=== PATIENT | female | born 1960 | race Caucasian/White ===

== ENCOUNTER 2022-09-27 15:13 | Outpatient (CLI) | payer MEDICARE, SELFPAY | END 2022-09-27 15:14 | disposition home or self-care (01) | PROVIDERS: PCP Family Medicine; Visit Provider Family Medicine | DX: Z00.00 Encounter for general adult medical examination without abnormal findings (principal); I10 Essential (primary) hypertension; E78.00 Pure hypercholesterolemia, unspecified | CPT/HCPCS: 80053; 80061; 84443 ==

== ENCOUNTER 2022-10-05 08:29 | Outpatient (CLI) | payer MEDICARE, SELFPAY ==
--- NOTE | 2022-10-05 09:00 | CRLHL7_ITS ---
For Patients: As a result of the Century Cures Act, medical imaging exams and procedure reports are released immediately into your electronic medical record. You may view this report before your referring provider. If you have questions, please contact your health care provider. MYOCARDIAL PERFUSION SCAN ??? [facility] CLINICAL HISTORY: 62-year-old female. Dyspnea on exertion. COPD. Prior smoker. Height 5 feet, 7 inches, weight 191 pounds. TECHNIQUE: (Resting SPECT and stress gated SPECT with wall motion and ejection fraction) Stress: Pharmacologic - Regadenoson (0.4 mg)(IV) (Walking Protocol) Dose (Stress/Rest): 32.1 mCi/8.44 mCi Tc-99m Sestamibi (IV) Comparison: None FINDINGS: There is good uptake of activity by the left ventricle. No left ventricular enlargement is noted. End-diastolic volume 44 mL. End-systolic volume 14 mL. There is mild soft tissue attenuation. No other significant fixed or reversible defects are identified. The gated images demonstrate a normal left ventricular ejection fraction of 68 percent. No regional wall motion abnormalities are identified. IMPRESSION: 1. No evidence of significant myocardial ischemia or infarction. 2. Normal left ventricular ejection fraction of 68 percent. This study was jointly reviewed by radiology and cardiology. SHIRLEY TSEPHENS M.D. Diagnostic/Nuclear Medicine Radiologist [email or web address] RIK/aaron / BERNARD LAU M.D. [facility] be/Dictated by: Shirley Stephens MD @ 10/05/2022 2:05:00 PM (Electronically Signed)
[2022-10-05] MEDS: SODIUM CHLORIDE 0.9 % (FLUSH) 10 ML SYRINGE IVF (10:50)
[2022-10-05] MEDS: REGADENOSON 0.4 MG/5 ML SYRINGE IVP (10:50)
[2022-10-05 10:55] VITALS: BP 140/84; PULSE 104; RESP 20
--- NOTE | 2022-10-05 11:52 | W.PM.STED ---
Stress Test Note Date Date of test: 10/05/22 Providers Primary care provider: Andres Palmer Stress test physician: Miguel Arceo Stress Test Note Stress test ordered: Lexiscila Indication for test: Shortness of breath Stress test medicine: Lexiscan Results discussion: Patient is seen cardiac stress test medical history form is reviewed, patient understands the risks benefits and side effects with to proceed, pretest EKG shows normal sinus rhythm, blood pressure 141/84, rate is 83. Standard Lexiscan walking protocol is used over 5 minute. , there is no complications, maximum heart rate was 129, no significant ST wave changes suggestive ischemia, she had no dysrhythmias, and recovered normally. She has some mild worsening of her vertiginous symptoms. She recovered normally. Impression: Negative electrographic portion of Lexiscan, successfully administered Follow up suggested: Discharge home, she is back to baseline, follow-up with primary care ordering physician, based on a review of the nuclear medicine component, clinical correlation with this will be needed.
== END 2022-10-05 11:05 | disposition home or self-care (01) ==
LOC: STRESS 08:30
PROVIDERS: PCP Family Medicine; Visit Provider Family Medicine
DX: R06.09 Other forms of dyspnea (principal)
CPT/HCPCS: 78452; 93016; 93017; A9500; J2785

== ENCOUNTER 2022-10-13 11:38 | Outpatient (CLI) | payer MEDICARE, SELFPAY | END 2022-10-13 11:39 | disposition home or self-care (01) | PROVIDERS: PCP Family Medicine; Referring Provider Family Medicine; Visit Provider Family Medicine | DX: E87.5 Hyperkalemia (principal) | CPT/HCPCS: 84132 ==

== ENCOUNTER 2022-12-22 16:04 | Outpatient (CLI) | payer MEDICARE, SELFPAY ==
--- NOTE | 2022-12-22 16:00 | CRLHL7_ITS ---
For Patients: As a result of the Century Cures Act, medical imaging exams and procedure reports are released immediately into your electronic medical record. You may view this report before your referring provider. If you have questions, please contact your health care provider. Indication: ABDOMEN PELVIS PAIN PELVIC SWELLING MASS LT WAIST LEVEL H/O ENDOMETRIOSIS Technique: Postcontrast CT abdomen and pelvis. 95 cc Isovue 370 intravenous contrast. Please note that all CT scans at this facility use dose modulation, iterative reconstruction, and/or weight-based dosing when appropriate to reduce radiation dose to as low as reasonably achievable. Comparison: None Findings: Emphysematous changes with several subpleural blebs. No pleural effusion. No free intraperitoneal air. Calcified granulomas within the right lung. No intrahepatic mass. The gallbladder is absent. No biliary obstruction. Normal anchors. Calcified granulomas in the spleen. Is small hiatal hernia. 1.4 cm right adrenal adenoma. Left adrenal gland normal. Kidneys are normal. The wrist atherosclerotic changes are present in the aorta. Bladder normal. No pelvic mass. Sigmoid diverticulosis. No diverticulitis. No bowel obstruction. No free fluid or abscess. Postop changes lumbar fusion L2-L5. Degenerative changes of both hips. Impression: Sigmoid diverticulosis. No diverticulitis. No pelvic mass or adenopathy. Status post cholecystectomy. No biliary obstruction. Old granulomatous change. Please note that all CT scans at this facility use dose modulation, iterative reconstruction, and/or weight-based dosing when appropriate to reduce radiation dose to as low as reasonably achievable. Dictated by Arvind Davison MD @ 12/23/2022 1:07:24 PM (Electronically Signed)
[2022-12-22 16:41] LABS: Creatinine* 0.7 mg/dL (0.5-1.5); Estimated Glomerular Filt Rate 98 ml/min
== END 2022-12-22 16:05 | disposition home or self-care (01) ==
PROVIDERS: PCP Family Medicine; Visit Provider Family Medicine
DX: R10.9 Unspecified abdominal pain (principal); K57.30 Diverticulosis of large intestine without perforation or abscess without bleeding; R19.00 Intra-abdominal and pelvic swelling, mass and lump, unspecified site; Z87.891 Personal history of nicotine dependence
CPT/HCPCS: 36415; 74177; 82565; Q9967

== ENCOUNTER 2022-12-29 15:52 | Outpatient (CLI) | payer MEDICARE, SELFPAY ==
--- NOTE | 2022-12-29 16:00 | CRLHL7_ITS ---
For Patients: As a result of the Cures Act, medical imaging exams and procedure reports are released immediately into your electronic medical record. You may view this report before your referring provider. If you have questions, please contact your health care provider. INDICATION: Lung cancer screening. History of smoking. High risk patient with greater than 26 pack-year smoking history. TECHNIQUE: Low-dose lung cancer screening non-contrast CT chest. Dose reduction techniques were used. COMPARISON: Abdominal CT 12/22/2022. FINDINGS: NODULES: Calcified granuloma within the right middle lobe. Small calcified granulomas within right posterior lateral lung adjacent to the fissure. Small calcified granuloma in the left upper lobe. Nodular density in the left apex measuring 7.1 millimeters, 07/01. LUNGS AND PLEURA: Emphysema with extensive emphysematous change in both lung apices with associated pleural parenchymal scarring. MEDIASTINUM: Atherosclerotic changes in the aorta. Calcified right hilar lymph nodes. CORONARY ARTERY CALCIFICATION: Present. LIMITED UPPER ABDOMEN: Low-density right adrenal adenoma again noted. Calcification within the spleen. Gallbladder is absent. Atherosclerotic changes. Small hiatal hernia. MUSCULOSKELETAL: Discogenic spurring. No fracture. IMPRESSION: 1. 7.1 millimeter nodule in the left lung apex with underlying severe emphysematous change and extensive biapical pleural parenchymal scarring. 2. Small calcified granulomas elsewhere. LUNG-RADS CATEGORY: 3: Probably benign. RADIOLOGIST RECOMMENDATION: Low-dose CT chest in 6 months. Please note that all CT scans at this facility use dose modulation, iterative reconstruction, and/or weight-based dosing when appropriate to reduce radiation dose to as low as reasonably achievable. Dictated by Arvind Davison MD @ 12/30/2022 8:38:22 AM (Electronically Signed)
== END 2022-12-29 15:53 | disposition home or self-care (01) ==
LOC: CT 15:53
PROVIDERS: PCP Family Medicine; Visit Provider Family Medicine
DX: Z12.2 Encounter for screening for malignant neoplasm of respiratory organs (principal); R91.1 Solitary pulmonary nodule
CPT/HCPCS: 71271

== ENCOUNTER 2023-01-10 11:35 | Outpatient (CLI) | payer MEDICARE, SELFPAY | END 2023-01-10 11:36 | disposition home or self-care (01) | LOC: NFLDREF 01-12 11:16 | PROVIDERS: PCP Family Medicine; Referring Provider Family Medicine; Visit Provider Family Medicine | DX: E78.00 Pure hypercholesterolemia, unspecified (principal) | CPT/HCPCS: 80061 ==

== ENCOUNTER 2023-03-21 14:08 | Outpatient (CLI) | payer MEDICARE, SELFPAY | END 2023-03-21 14:09 | disposition home or self-care (01) | PROVIDERS: PCP Family Medicine; Visit Provider Family Medicine | DX: R07.9 Chest pain, unspecified (principal); I10 Essential (primary) hypertension; E78.00 Pure hypercholesterolemia, unspecified; D61.818 Other pancytopenia; K21.9 Gastro-esophageal reflux disease without esophagitis; R10.9 Unspecified abdominal pain; R13.10 Dysphagia, unspecified | CPT/HCPCS: 80061; 83690 ==

== ENCOUNTER 2023-03-29 11:15 | Outpatient (CLI) | payer MEDICARE, SELFPAY ==
--- NOTE | 2023-03-29 13:21 | W.ANESCHARGE ---
Anesthesia Charges Start Date/Time Anesthesia Start Date: 03/29/23 Anesthesia Start Time: 13:03 Stop Date/Time Anesthesia Stop Date: 03/29/23 Anesthesia Stop Time: 13:17
--- NOTE | 2023-03-29 13:23 | W.ANESCHARGE ---
Anesthesia Charges Start Date/Time Anesthesia Start Date: 03/29/23 Anesthesia Start Time: 13:03 Stop Date/Time Anesthesia Stop Date: 03/29/23 Anesthesia Stop Time: 13:17
== END 2023-03-29 11:16 | disposition home or self-care (01) ==
LOC: OP CLINIC 11:16
PROVIDERS: PCP Family Medicine; Visit Provider Internal Medicine
DX: R13.10 Dysphagia, unspecified (principal); K44.9 Diaphragmatic hernia without obstruction or gangrene; K29.70 Gastritis, unspecified, without bleeding
CPT/HCPCS: 00731; 43239; 88305; J2704

== ENCOUNTER 2023-04-06 11:15 | Outpatient (CLI) | payer MEDICARE, SELFPAY ==
--- NOTE | 2023-04-06 11:15 | CRLHL7_ITS ---
For Patients: As a result of the Century Cures Act, medical imaging exams and procedure reports are released immediately into your electronic medical record. You may view this report before your referring provider. If you have questions, please contact your health care provider. Technique: Double-contrast esophagram performed after the uneventful administration of effervescent crystals and thick barium. Fluoroscopy time 60 seconds. Indication: Esophageal dysphagia Comparison: CT abdomen and pelvis 12/22/2022 Findings: Postoperative changes to the lumbar spine noted. Swallowing mechanism normal. No obstruction to the flow of barium. No mucosal irregularity or stricture. No achalasia or ulcer. Normal esophageal motility. No significant reflux. Impression: Normal double-contrast esophagram. Dictated by Arvind Davison MD @ 04/07/2023 9:08:52 AM (Electronically Signed)
== END 2023-04-06 11:16 | disposition home or self-care (01) ==
LOC: RAD 11:16
PROVIDERS: PCP Family Medicine; Visit Provider Internal Medicine Gastroenterology
DX: R13.19 Other dysphagia (principal)
CPT/HCPCS: 74221

== ENCOUNTER 2023-04-27 14:30 | Outpatient (RCR) | payer MEDICARE, SELFPAY ==
--- NOTE | 2023-01-31 09:53 | PT.OPE ---
PT [place] Outpatient Eval PT [facility] Outpatient Eval Start: 01/26/23 16:26 Freq: Status: Active Protocol: Document 01/26/23 16:27 ARMAAN (Rec: 01/26/23 16:28 ARMAAN [id number]) E-signed By Frank Mosley DPT, MS Physical Therapy Outpatient Evaluation Insurance Information Recert Due Date 05/01/23 Insurance Name [employer]auffer Medical Diagnosis Patellofemoral disorders, unspecified knee Treating Diagnosis B LE and core weakness, deconditioning, decreased L knee ROM, decreased B (L>R) flexibility, imbalance, and gait dysfunction Subjective Subjective Snehal is a 62-year-old female who presents to PT with c/o L knee pain which 1st developed after she tripped and fell onto the anterior aspect of her left knee and lower leg in April of 2022. Injury occurred at a restaurant when she tripped on a floor mat. Following the injury, she developed significant bruising and swelling of her knee which gradually migrated distally into her lower leg. Swelling and bruising have improved, but she continues to experience high levels of L parapatellar knee pain and significant L LE weakness. Describes sxs as a constant dull ache with occasional more sharp severe pain. L knee pain limits dulce maria to walking and exercise leading to worsening B LE weakness. Previously diagnosed with stage 4 RSD which pt notes has led to ? shredding? of B Achilles tendons when she tried to use a seated pedaling machine. Afraid to attempt exercise due to further LS, core and B LE injury. MRI on 09/05/22 found: 1. Minimal degenerative fraying involving the free edge of the body segment lateral meniscus. Menisci otherwise appear intact. 2. Chondromalacia involving the patella and weight-bearing medial femoral condyle. Grade 2 chondral changes of the patella grade 2-3 chondral loss involving the medial femoral condyle. PMH also includes Sjogren's Syndrome. AGGR factors: walking, standing, prolonged sitting, lifting, carrying objects, sleeping, kneeling, ice/cold, stair climbing and squatting. ALLEV factors: Voltaren gel, Tylenol with codeine. Pt hopes to learn how to safely strengthen her L LE safely to improve dulce maria to daily activities. Pain Comments 4-09/18 Current Work Status Unemployed Preferred Name Leyla Precautions Therapy Limitations/Systems Review Not Limited Objective Functional Test Performed & Score LEFS: 12 Assessment Assessment/Impression Pt displays signs and symptom consistent with dx of patellofemoral pain syndrome with underlying patellar chondromalacia. Objectively pt displays significant B LE and core weakness, deconditioning , decreased L knee ROM, decreased B (L>R) flexibility, imbalance, and gait dysfunction. L hamstrings are very tight with pt describing avoidance of stretching due to previous muscular injuries. Impaired L quad and glute NM activation observed with pt describing fear avoidance of movement and activities due to pain. Pt?s PMH of stage 4 RSD contributing to severity of sxs. Good response to seated exercises today with fatigue following with pt requesting no NuStep use due to previous injury with biking at home. Pt will benefit from continued skilled PT intervention to address these limitations. Primary Functional Limitations Walking, standing, prolonged sitting, lifting, carrying objects, sleeping, kneeling, ice/cold, stair climbing and squatting Plan of Care Rehabilitation Potential Good Rehabilitation Potential Comments Due to chronic nature of sxs, deconditioning and RSD dx Physical Therapy Goals Short-term goals to be completed in 4 weeks: 1. Pt will report improved quality of sleep waking <2x per night due to L knee pain for >3 consecutive nights. 2.Pt will display improved L LE strength as evidenced by performing >8 SLR of good quality to improve quality of gait 3. Pt will report improved L knee pain <3/10 with sitting > 15 min to improve tolerance to driving and seated daily activities. Long-term goals to be completed in 12 weeks: 1.Pt will be independent and compliant with her HEP for long-term sx management 2.Pt will display improved L hip flex, ABD and ext strength of >4/5 to improve tolerance to walking and daily activities. 3.Pt will report >50% improvement in LEFS questionnaire to significantly improve dulce maria to daily activities. 4. Pt will be able to walk >8 minutes with L knee pain <3/10 to improve cardiovascular health and improve tolerance to shopping activities. Coordination/Communication With Referral Source Treatment Plan/Direct Interventions Manual Therapy,Neuromuscular Re-ed,Therapeutic Exercises Frequency/Duration 1x per week for 8-12 visits, decreasing visit frequency as able. Patient Will Be Discharged From Therapy Completion of LTG(s),Skills Plateau,Independent w/HEP, Independently Progressing Evaluation Billing Untimed Code Treatment Minutes 26 Complexity Moderate Certification Information Initial Certification Date 01/31/23 Ending Certification Date 05/01/23 Provider Signature Shows Agreement With POC & Medical Necessity Physician Signature & Date Requested Please Sign/Date Here Physician Comment/Change : Physician NPI Number #
== END 2023-05-02 15:41 | disposition home or self-care (01) ==
PROVIDERS: PCP Family Medicine; Visit Provider Orthopaedic Surgery
DX: M22.2X9 Patellofemoral disorders, unspecified knee (principal); Z51.89 Encounter for other specified aftercare
CPT/HCPCS: 97035; 97110; 97140; 97162

== ENCOUNTER 2023-05-27 15:13 | Outpatient (CLI) | payer MEDICARE, SELFPAY | END 2023-05-27 15:14 | disposition home or self-care (01) | LOC: LKVREF 15:14 | PROVIDERS: PCP Family Medicine; Visit Provider Family Medicine | DX: I10 Essential (primary) hypertension (principal) | CPT/HCPCS: 80053 ==

== ENCOUNTER 2023-06-29 13:53 | Outpatient (CLI) | payer MEDICARE, SELFPAY ==
--- NOTE | 2023-06-29 14:00 | CT_ITS ---
Patient: LEONA LUCAS Facility:?[facility] Patient ID:?[id number] Site Patient ID:?[id number]. Site :?[id number] Study:?CT-Chest WO-06/29/2023 3:12:00 PM Ordering Physician:CAROLINE Final Report: Indication: 6 MONTH FOLLOW UP LOW DOSE Technique: Noncontrast CT chest Please note that all CT scans at this facility use dose modulation, iterative reconstruction, and/or weight-based dosing when appropriate to reduce radiation dose to as low as reasonably achievable. Comparison: 12/29/2022 Findings: Stable biapical pleural-parenchymal scarring with 7 millimeter nodule in the left lung apex. Emphysematous changes. No focal infiltrate. No additional nodule. Vascular calcifications. No adenopathy. Gallbladder absent. Calcified granulomas in the spleen. Small hiatal hernia. Calcified granulomas within the right lung. Impression: Stable 7 millimeter left apical pulmonary nodule. Follow-up in 1 year recommended. Please note that all CT scans at this facility use dose modulation, iterative reconstruction, and/or weight-based dosing when appropriate to reduce radiation dose to as low as reasonably achievable. Dictated by Arvind Davison MD @ 06/30/2023 11:56:27 AM Signed by:?Arvind Davison MD @06/30/2023 11:56:27 AM (Electronic Signature)
== END 2023-06-29 13:54 | disposition home or self-care (01) ==
LOC: CT 13:54
PROVIDERS: PCP Family Medicine; Visit Provider Family Medicine
DX: R91.1 Solitary pulmonary nodule (principal); J44.9 Chronic obstructive pulmonary disease, unspecified; Z91.89 Other specified personal risk factors, not elsewhere classified
CPT/HCPCS: 71250

== ENCOUNTER 2023-10-06 22:45 | Outpatient (REF) | payer MEDICARE, SELFPAY ==
[2023-10-07 00:29] LABS: Basophils Absolute Auto 0.02 K/uL (0.00-0.30); Basophils Percent Auto 0.2 % (0.0-3.0); Eosinophils Absolute Auto 0.18 K/uL (0.00-0.50); Eosinophils Percent Auto 2.2 % (0.0-7.0); Hematocrit 44.1 % (33.0-51.0); Hemoglobin* 14.2 gm/dL (12.0-16.0); Immature Granulocytes Abs Auto 0.09 K/uL (0.00-0.30); Immature Granulocytes Pct Auto 1.1 %; Lymphocytes Absolute Auto 2.59 K/uL (0.90-2.90); Lymphocytes Percent Auto 32.1 % (20-44); Mean Corpuscular HGB Conc 32 gm/dL (32-36); Mean Corpuscular Hemoglobin 31 pg (26-34); Mean Corpuscular Volume 97 fL (80-100); Monocytes Percent Auto 6.5 % (0.0-11.0); Neutrophils Absolute Auto 4.66 K/uL (1.7-7.0); Neutrophils Percent Auto 57.9 % (42.0-72.0); Platelet Count* 316 K/uL (140-440); RDW Coefficient of Variation % 13.2 % (11.5-15.5); Red Blood Count 4.56 m/uL (4.00-5.20); White Blood Count* 8.06 K/uL (4.50-11.00)
[2023-10-07 00:39] LABS: Slide Review Reflex No
[2023-10-07 02:07] LABS: Albumin* 4.3 g/dL (3.3-5.0); Chloride* 104 mmol/L (96-114)
[2023-10-07 02:08] LABS: Potassium* 4.1 mmol/L (3.6-5.1); Sodium* 140 mmol/L (135-149)
[2023-10-07 02:10] LABS: Alkaline Phosphatase* 77 U/L (40-150); Anion Gap 7 mEq/L (7-15); Aspartate Amino Transferase* 22 U/L (12-35); Bilirubin Total* 0.6 mg/dL (0.1-1.5); Carbon Dioxide* 29 mmol/L (20-32); Creatinine* 0.7 mg/dL (0.5-1.5); Estimated Glomerular Filt Rate 97 ml/min; Total Protein* 6.8 g/dL (6.0-8.3)
[2023-10-07 02:11] LABS: Alanine Aminotransferase* 17 U/L (4-35); Blood Urea Nitrogen* 14 mg/dL (7-30); Calcium* 9.5 mg/dL (8.4-10.6); Glucose* 95 mg/dL (60-115); Uric Acid* 4.4 mg/dL (2.2-8.4)
[2023-10-07 02:13] LABS: C Reactive Protein* 0.6 mg/dL (0.5-1.0)
[2023-10-07 02:25] LABS: Free T4 Free Thyroxine* 0.99 ng/dL (0.70-1.85); Vitamin D 25 Hydroxy* 22 ng/mL (30-80)
[2023-10-07 03:00] LABS: Vitamin B12* 225 pg/mL (243-894)
[2023-10-07 03:26] LABS: Ferritin* 33.8 ng/mL (11.1-264.0)
[2023-10-07 12:30] LABS: Iron* 106 ug/dL (37-170)
[2023-10-07 12:40] LABS: Percent Iron Saturation 33 % (20-50); Total Iron Binding Capacity 323 ug/dL (265-497)
[2023-10-08 08:31] LABS: Thyroid Peroxidase (TPO) Ab <0.3 IU/mL (0.0-9.0)
[2023-10-08 16:50] LABS: Free T3 2.6 pg/mL (2.5-4.3)
[2023-10-09 01:12] LABS: Copper, Serum/Plasma 136.6 ug/dL (80.0-155.0)
[2023-10-09 08:47] LABS: Homocysteine, Total 13 umol/L (0-15)
[2023-10-12 17:07] LABS: Vitamin B1, Whole Blood 120 nmol/L (70-180)
== END 2023-10-06 22:46 | disposition home or self-care (01) ==
LOC: NPINS 22:45
PROVIDERS: PCP Family Medicine; Visit Provider Family Medicine
DX: R53.83 Other fatigue (principal); R35.0 Frequency of micturition; I10 Essential (primary) hypertension; E78.00 Pure hypercholesterolemia, unspecified; G90.50 Complex regional pain syndrome I, unspecified
CPT/HCPCS: 80053; 82175; 82300; 82306; 82525; 82607; 82728; 83090; 83540; 83550; 83655; 83825; 84255; 84425; 84439; 84443; 84481; 84550; 84630; 85025; 86140; 86376

== ENCOUNTER 2024-02-27 16:43 | Outpatient (CLI) | payer MEDICARE, SELFPAY | END 2024-02-27 16:44 | disposition home or self-care (01) | LOC: LKVREF 16:44 | PROVIDERS: PCP Family Medicine; Visit Provider Family Medicine | DX: I10 Essential (primary) hypertension (principal) | CPT/HCPCS: 80053 ==

== ENCOUNTER 2024-07-02 15:57 | Outpatient (CLI) | payer OTHER, SELFPAY | END 2024-07-02 15:58 | disposition home or self-care (01) | PROVIDERS: PCP Family Medicine; Visit Provider Family Medicine | DX: E53.8 Deficiency of other specified B group vitamins (principal); E55.9 Vitamin D deficiency, unspecified; I10 Essential (primary) hypertension; Z13.21 Encounter for screening for nutritional disorder | CPT/HCPCS: 80053; 82306; 82607; 83735 ==

== ENCOUNTER 2024-07-10 13:43 | Outpatient (CLI) | payer MEDICARE, SELFPAY ==
--- NOTE | 2024-07-10 14:00 | CRLHL7_ITS ---
For Patients: As a result of the Century Cures Act, medical imaging exams and procedure reports are released immediately into your electronic medical record. You may view this report before your referring provider. If you have questions, please contact your health care provider. INDICATION: Abdominal and left flank pain TECHNIQUE: Volumetric helical scanning of the abdomen and pelvis was performed with 98 cc of Isovue 370 contrast material IV. Coronal and sagittal reconstructions were obtained. COMPARISON: None FINDINGS: No bowel inflammation or obstruction is demonstrated. Sigmoid diverticulosis is noted but there is no evidence of diverticulitis. There is a moderate to large volume stool in the colon. Bowel is otherwise unremarkable. An appendix is not identified with certainty. No ureteral stone or obstruction is evident. The kidneys are normal in size and shape and demonstrate normal contrast enhancement. The liver is normal in size, shape and attenuation. Postop changes of cholecystectomy are noted. The bile ducts are prominent, likely due to post-cholecystectomy reservoir effect. The spleen and pancreas are unremarkable. A nonspecific 1.5 cm right adrenal nodule is noted. The left normal no lymphadenopathy is evident. No free fluid is demonstrated. Postop changes of hysterectomy are noted. Postop changes of L2-L5 AP fusion also noted. Centrilobular emphysema is noted in the lung bases. The heart size is normal. IMPRESSION: 1. Sigmoid diverticulosis but no evidence of diverticulitis. 2. Possible constipation. 3. Post cholecystectomy, hysterectomy and L2-L5 AP fusion. 4. Nonspecific 1.5 cm right adrenal nodule. Follow up with CT utilizing adrenal adenoma protocol suggested. 5. Centrilobular emphysema. Please note that all CT scans at this facility use dose modulation, iterative reconstruction, and/or weight-based dosing when appropriate to reduce radiation dose to as low as reasonably achievable. Dictated by Magdaleno Adams MD @ 07/12/2024 5:32:45 AM (Electronically Signed)
--- NOTE | 2024-07-10 14:14 | CRLHL7_ITS ---
For Patients: As a result of the Century Cures Act, medical imaging exams and procedure reports are released immediately into your electronic medical record. You may view this report before your referring provider. If you have questions, please contact your health care provider. INDICATION: Lung cancer screening. Significant smoking history. TECHNIQUE: Low-dose volumetric helical scanning of the thorax was performed without IV contrast material. Coronal and sagittal reconstructions were obtained. COMPARISON: None FINDINGS: A noncalcified 3 mm left lower lobe nodule is demonstrated on image 94 of series 3. Several tiny calcified granulomas are also noted. Emphysema is noted with mild fibrotic changes in the upper lobe apices. Mild bronchial wall thickening is noted. No pleural effusion is demonstrated. There is no mediastinal or hilar lymph adenopathy. The heart size is normal. Calcified coronary arterial plaque is demonstrated. Images of the upper abdomen demonstrate a nonspecific 1.5 cm right adrenal nodule and postop changes of cholecystectomy. IMPRESSION: 1. Negative for the purpose of lung cancer screening. Lung-RADS CATEGORY 2: BENIGN APPEARANCE OR BEHAVIOR: Continue annual screening with low-dose chest CT in 12 months. 2. Coronary artery disease. 3. Nonspecific 1.5 cm right adrenal nodule. Follow up CT utilizing adrenal adenoma protocol recommended. Please note that all CT scans at this facility use dose modulation, iterative reconstruction, and/or weight-based dosing when appropriate to reduce radiation dose to as low as reasonably achievable. Dictated by Magdaleno Adams MD @ 07/12/2024 5:26:37 AM (Electronically Signed)
== END 2024-07-10 13:44 | disposition home or self-care (01) ==
LOC: CT 13:44
PROVIDERS: PCP Family Medicine; Visit Provider Family Medicine
DX: Z12.2 Encounter for screening for malignant neoplasm of respiratory organs (principal); Z87.891 Personal history of nicotine dependence; I25.10 Atherosclerotic heart disease of native coronary artery without angina pectoris; E27.9 Disorder of adrenal gland, unspecified; R19.00 Intra-abdominal and pelvic swelling, mass and lump, unspecified site; K57.30 Diverticulosis of large intestine without perforation or abscess without bleeding; E27.8 Other specified disorders of adrenal gland; G90.50 Complex regional pain syndrome I, unspecified; Z91.89 Other specified personal risk factors, not elsewhere classified
CPT/HCPCS: 71271; 74177; Q9967

== ENCOUNTER 2024-08-02 10:56 | Outpatient (CLI) | payer MEDICARE, SELFPAY ==
--- NOTE | 2024-08-02 11:00 | CRLHL7_ITS ---
For Patients: As a result of the Century Cures Act, medical imaging exams and procedure reports are released immediately into your electronic medical record. You may view this report before your referring provider. If you have questions, please contact your health care provider. Indication: ADRENAL NODULE Technique: Noncontrast CT abdomen Please note that all CT scans at this facility use dose modulation, iterative reconstruction, and/or weight-based dosing when appropriate to reduce radiation dose to as low as reasonably achievable. Comparison: CT 07/10/2024 Findings: Emphysematous changes in both lung bases. Incidental right Bochdalek`s hernia containing fat. Calcified granuloma in the right middle lobe. No pleural effusion. Small hiatal hernia which measures 2.6 cm. Unremarkable noncontrast enhanced liver. Gallbladder absent. Similar tapering of the common bile duct with reservoir effect involving the intrahepatic biliary tree. Normal pancreas. Calcified granulomas in the spleen. Normal left adrenal gland. No hydronephrosis or renal stone. Atherosclerotic changes. Postop changes lumbar spine. Visualized bowel loops appear normal. 1.5 cm with mean Hounsfield units of 7. Impression: Benign 1.5 cm right adrenal adenoma. Please note that all CT scans at this facility use dose modulation, iterative reconstruction, and/or weight-based dosing when appropriate to reduce radiation dose to as low as reasonably achievable. Dictated by Arvind Davison MD @ 08/02/2024 12:03:04 PM (Electronically Signed)
--- NOTE | 2024-08-02 11:15 | CRLHL7_ITS ---
For Patients: As a result of the Century Cures Act, medical imaging exams and procedure reports are released immediately into your electronic medical record. You may view this report before your referring provider. If you have questions, please contact your health care provider. Technique: Double-contrast esophagram performed after the uneventful administration of thin barium. Fluoroscopy time 40 seconds. Indication: Gastritis Comparison: 04/07/2023 Findings: Esophagus: Normal morphology and motility. No stricture or mass. Gastroesophageal reflux: Mild spontaneous reflux noted with a small sliding hiatal hernia. The hernia measures approximately 2.1 cm. Impression: No stricture or achalasia. Small sliding hiatal hernia with mild reflux. No acute inflammation. Normal motility. Dictated by Arvind Davison MD @ 08/02/2024 12:42:02 PM (Electronically Signed)
== END 2024-08-02 10:57 | disposition home or self-care (01) ==
LOC: CT 10:57
PROVIDERS: PCP Family Medicine; Visit Provider Family Medicine
DX: K29.70 Gastritis, unspecified, without bleeding (principal); K44.9 Diaphragmatic hernia without obstruction or gangrene; K21.9 Gastro-esophageal reflux disease without esophagitis; G90.50 Complex regional pain syndrome I, unspecified; E27.9 Disorder of adrenal gland, unspecified
CPT/HCPCS: 74150; 74220

== ENCOUNTER 2024-09-26 15:00 | Outpatient (RCR) | payer MEDICARE, OTHER, SELFPAY ==
--- NOTE | 2023-10-27 11:58 | PT.OPE ---
PT [place] Outpatient Eval PT [facility] Outpatient Eval Start: 10/11/23 16:10 Freq: Status: Active Protocol: Document 10/17/23 15:34 LSL (Rec: 10/17/23 17:23 LSL [id number]) E-signed By Criss Vazquez PT Physical Therapy Outpatient Evaluation Insurance Information Recert Due Date 01/13/24 Insurance Name Workman's [employer] Insurance Information/Comments [employer]BE[employer]ER Medical Diagnosis CRPS 1, Stage IV Treating Diagnosis pain, weakness, headaches, impaired ROM Referring MD Palmer Subjective Preferred Name Leyla Hebert Original injury occurred in 1989 and I ruptured a tendon in my R forearm and 4-5 months into it was diagnosed with RSD. Took about 5 years to get full use of my arm back. Then in 2013 fell in a parking lot and injured both hands and reexacerbated the symptoms. I had therapy for weeks and couldn't get past it. I did some MFR therapy for a while and then lived with it and then about 3 years ago I started back into MFR and I also hurt both my achilles by riding a sit down floor pedal bike. Apr 22, 2022 I fell in a restaurant on my L leg and it wasn't broken but it turned black. I got a huge bulge on my L side which they told me was my abdominal wall. It jammed all my organs and I had swallowing and breathing problems and they provided me with a steroid inhaler which has helped a lot. My neurologist referred me to the [facility]. Pt. is currently experiencing pain in her R cervical and shoulder area and it shoots to my shoulder, sometimes it radiates down the back of my arm and makes all my fingers tingle. Pt. reports she also gets tension headaches and headaches that can occur where she gets a sharp stabbing pain at the bridge of her nose and it surrounds her eyes. This can even happen when she is asleep. PMH - L4-5 4 lumbar surgeries 3 in short succession in 1998 and then a 4th at [facility] saw Dr. Fry in 1999 so now fused, broken L jaw when teeth were removed for dentures due to Sjogrens Date of Last Physician Visit 10/06/23 Precautions Weight Bearing Status Full Weight Bearing Therapy Limitations/Systems Review Other Medical Problem Objective Range of Motion AROM - Cervical extension grossly 40% and all others 10-25% with dizziness returning from extension Shoulder flexion 100, ER 75%, IR B L5-S1 Strength Cervical - unable to get full assessment due to pain response from contact pressure Shoulders grossly 3/5 but difficult to sustain a contraction Palpation hypersensitive to touch throughout thoracic and cervical paraspinals, UT, scalenes, pec, posterior shoulder Balance & Gait Frequent legs giving out during ambulation without fall Posture Sits to right side and some cervical extension Pt. has large protrusion in lateral L abdominal wall. Assessment Assessment/Impression Pt. is a 63 y/o female with a complex long history of CRPS. She is hypersensitive to touch and has difficulty with MMT so measurements are going to be inconsistent. She appears to be having cervicogenic dizziness and headaches. Her IMB doctor doesn't want her to exercise until she is sleeping. Further research into what the bulge in her left lateral trunk is will be necessary as this may impact her deep core musculature and contribute to her respiratory problems. Treatment will initially consist of manual therapy to decrease tension in her neck and head and progress to ROM exercise as able and eventually to strengthening. Due to the inconsistency in symptom presentation with CRPS and the easily irritated nerves, treatment will need to be very slowly progressive. Primary Functional Limitations cervical ROM to turn her head, completing any form of exercise, walking Plan of Care Rehabilitation Potential Fair Physical Therapy Goals SHORT TERM GOALS: (6 weeks) 1. Pt. able to move head without becoming dizzy. 2. Pt. able to report decreased frequency of tension headaches to less than 4/week . 3. Pt. able to report decreased episode of headaches through her eyes to less than 1/week. 4. Pt. able to report decreased symptoms into L arm Coordination/Communication With Referral Source Treatment Plan/Direct Interventions Manual Therapy,Neuromuscular Re-ed,Self-Care/Home Management,Therapeutic Exercises Frequency/Duration 2x/week 6 weeks Patient Will Be Discharged From Therapy Skills Plateau,Independent w/ HEP,Independently Progressing Evaluation Billing Untimed Code Treatment Minutes 55 Complexity High Certification Information Initial Certification Date 10/17/23 Ending Certification Date 01/13/24 Provider Signature Required Yes Provider Signature Shows Agreement With POC & Medical Necessity Physician NPI Number Write NPI# Here Physician Comment/Change : Physician Signature & Date Requested Please Sign/Date Here
--- NOTE | 2024-04-05 16:25 | PT.OPDN ---
PT [place] Outpatient Daily Note PT [facility] Outpatient Daily Note Start: 10/11/23 16:10 Freq: Status: Active Protocol: Document 04/05/24 14:36 LSL (Rec: 04/05/24 14:37 LSL [id number]) E-signed By Criss Vazquez, PT PT OP Daily Progress Note Visit Information Note Type Daily Note,Recert/Progress Note Visit Number [id number] Insurance Authorized Visits 16 Physician Authorized Visits eval & treat Insurance Information Insurance Name Medicare B,Workman[employer] Insurance Information/Comments MEDICAL LABORATORY SCIENTIST Medical Diagnosis CRPS 1, Stage IV Treating Diagnosis pain, weakness, headaches, impaired ROM Referring MD Palmer Subjective Preferred Name Leyla Subjective Pt. reports she continues with symptoms of autonomic disregulation including being freezing cold but pouring sweat at the same time. She thought this may have been due to changes in her BP medication, so she resumed her old protocol and it made a change maybe for a day. The ringing in her ears is horrible and has had some weird rhythmic scratching in her ears that drives her crazy and changes with head turns. Her sternum is back to not allowing her to take breaths without feeling like it's hard to get air in. Headaches are still present daily and she has been getting jaw pain when attempting the cervical retractions. Since starting PT I am less dizzy, more stable, and have a little better balance and I had a day in the past week where I was able to take 800 steps compared to about 50 when I started. Pain Comments posterior cervical 9/10, scalp and face 9/10 worst in past week Date of Last Physician Visit 10/06/23 Precautions Weight Bearing Status Full Weight Bearing Home Exercise Home Exercise Comments [facility]: [id number] diaphragmatic breathing with pressure (ball, pool noodle) at sternum to encourage posterior rib expansion, open book [id number] (added 01/25/24) shoulder extension isomet, shoulder row isomet, ER AROM Objective Patient Instructed in Risks/Benefits Yes Therapeutic Exercise Therapeutic Exercise Minutes (minutes) 2 Therapeutic Exercise: To Restore supine chin tucks 5x 5 sec Functional Status with correction of technique to decrease stress to jaw HELD BELOW: L shoulder ER YTB 10x R shoulder ER YTB 10x B YTB row 10x shoulder extension isometric 10x ea cervical lateral flexion AROM 5x Manual Therapy Techniques Manual Therapy Minutes (minutes) 26 Manual Therapy Techniques OA release, STM to B TMJ region to decrease tissue tension with measurements for PN Treatment Minutes Timed Code Treatment Minutes 28 Total Treatment Time 28 Billing Units Manual Therapy Units 2 Assessment/Impression Assessment/Impression Pt. has a significant improvement in her L suboccipital tension today, but slight increase in R. Some of her new jaw pain was likely contributed to by poor technique with cervical retraction where she was attempting to initiate with jaw, which may be lack of neuromuscular control in trying to perform a painful motion. She had improved technique after we reviewed it today. Primary Functional Limitations reaching, lifting, carrying, ADLs, walking Plan of Care Physical Therapy Goals SHORT TERM GOALS: (6 weeks) 1. Pt. able to move head without becoming dizzy. (Not met) 2. Pt. able to report decreased frequency of tension headaches to less than 4/week . (Not met) 3. Pt. able to report decreased episode of headaches through her eyes to less than 1/week. (Not met) 4. Pt. able to report decreased symptoms into L arm (MET) NEW GOALS 04-05-24 1. Pt. able to complete HEP 2x /week 2. Pt. to report improved ability to breath with less sternum pain. 3. Pt. to consistently have less tension in the suboccipital region to contribute to potential decrease in HAs. Daily Plan of Care Continue per POC Daily Plan of Care Comments Ongoing POC to consist of therex, NM re-ed, manual therapy, may consider US/e- stim Recertification Information Initial Certification Date 10/17/23 Recertification Start Date 02/15/24 Recertification Due Date 05/14/24 Reasons to Continue Skilled Therapy chronic nature of CRPS stage IV with impaired ability to use UE in ADLs, breathing and swallowing issues, impaired balance, impaired gait, impaired NM control during therex/UE movements Rehabilitation Potential Poor Continued Plan of Care and Interventions Therex, NM re-ed, manual therapy Provider Signature Shows Agreement With POC & Medical Necessity Physician Comment/Change Comment or Changes Physician NPI Number #
--- OUTSIDE RECORDS SUMMARY | 2024-04-12 15:01 | XMS_ITS | Clinical Summary ---
Author Organization [facility] Address [place], [place] [address] Care Team Providers Care Civil Cad Designer Name Role Phone Yeimi Wright MD Unavailable [phone] Andres Palmer MD Primary Care Provider [phone] Allergies Active Allergy Reactions Criticality Noted Date Comments Amitriptyline *Unknown 10/05/2006 Erythromycin Nausea And Vomiting 03/19/2005 Opioids - Morphine Analogues *Unknown 022 Penicillins Hives 03/19/2005 Prednisone *Unknown 06/12/2020 Sulfa (Sulfonamide Antibiotics) Nausea And Vomiting 03/19/2005 Tramadol Other - Describe In Comment Field 03/12/2014 hives Medications melatonin 1 mg Tab Take 1-2 tablets by mouth at bedtime if needed for Sleep. 0 2 Active cholecalciferol (VITAMIN D3) 1,000 unit capsule Take 2 capsules by mouth once daily. 100 capsule 3 2 Active Nebulizer & Compressor For NebIndications: Fever,Cough,Smo fercho For home use. 1 Device 0 3 Active cyclobenzaprine (FLEXERIL) 10 mg tablet TAKE 1 TABLET BY MOUTH TWO HOURS BEFORE AT BEDTIME NEEDED 0 Active diclofenac topical (VOLTAREN) 1 % gel APPLY TO AFFECTED AREA NEEDED 0 Active baclofen (LIORESAL) 10 mg tablet Take 30 mg by mouth once daily with evening meal. Take 1 tablet in the morning and 2 tablets in the evening 1 Active acetaminophen-c odeine (TYLENOL-CODEIN E #3) 300-30 mg per tabletIndicatio ns:RSD (reflex sympathetic dystrophy) Take 1 Tablet by mouth every 4 hours if needed for Pain. Max acetaminophen dose: 4000mg in 24 hrs. 90 Tablet 1 Active albuterol (PROVENTIL) 0.083 % neb solutionIndicat ions:Chronic obstructive pulmonary disease, unspecified COPD type (HC) Inhale 3 mL (2.5 mg) via a nebulizer every 6 hours if needed for Shortness Of Breath. 100 mL 1 2 Active albuterol HFA (PRO-AIR; VENTOLIN; PROVENTIL) 90 mcg/actuation inhalerIndicati ons:Chronic obstructive pulmonary disease, unspecified COPD type (HC) Inhale 2 Puffs by mouth every 4 hours if needed for Shortness of Breath 2nd choice or Wheezing 2nd choice. INHALE 2 PUFFS BY MOUTH EVERY 4 HOURS IF NEEDED FOR SHORTNESS OF BREATH 1ST CHOICE OR WHEEZING 1 Each 11 2 Active DULoxetine (CYMBALTA) 20 mg Delayed-release capsule Take 20 mg by mouth once daily. 4 Active DULoxetine (CYMBALTA) 30 mg Delayed-release capsule Take 30 mg by mouth once daily. 4 Active metoprolol succinate (TOPROL XL) 50 mg sustained-relea se tablet Take 50 mg by mouth once daily. 4 Active multivitamin (MVI) tablet Take 1 Tablet by mouth once daily. 3 Active pantoprazole (PROTONIX) 40 mg delayed-release tablet Take 40 mg by mouth once daily before a meal. Active Symbicort 160-4.5 mcg/actuation (160-4.5 mcg each actuation) inhaler Inhale 2 Puffs by mouth two times daily. 4 Active sennosides-docu sate (Senna-S) (8.6-50 mg) tablet Take 1 Tablet by mouth once daily. Active fexofenadine (Cristina Allergy) 60 mg tablet Take 60 mg by mouth once daily. Active medication order composer Alpha Lipoic Acid 600 m capsule po daily. Simply Saline : 1 spary in each nostril inhaled 6 times a day. Nyquil Night Time: 2 capsules po daily at bedtime. Active Active Problems Problem Noted Date Diagnosed Date Vitamin D deficiency 12/08/2023 Complex regional pain syndro me type 1 of both upper extremities 06/12/2020 COPD (chronic obstructive pulmonary disease) 07/2020 Sensorineural hearing loss, bilateral 08/29/2018 Obesity 03/12/2014 Overview (03/12/2014): Lost 100 lbs and weight is now normal Neuropathy 01/04/2013 Overview (01/04/2013): Dr. Fiore Low back pain 12/28/2011 Overview (12/28/2011): Dr. Fry Has chronic right sciatica. Primary Sjogren's syndrome 07/26/2008 Overview (03/12/2014): Dr. Peraza, dentist at [facility] Dr. Jones, Rheumatology ([facility]) Not following with Rheumatology regularly, has been allergic to the medication Other Forms of Migraine with Intractable Migraine, So Stated 07/26/2008 Overview (07/26/2008): Complicated migraine with mild right facial weakness and hemisensory deficit Unspecified Reflex Sympathetic Dystrophy 007 Overview (12/28/2011): Diagnosed 1988, started in the right wrist after injury. Resolved Problems Problem Noted Date Diagnosed Date Resolved Date Dependence on nicotine from cigarettes 06/12/2020 03/09/2022 RSD (reflex sympathetic dystrophy) 03/12/2014 10/03/2023 Smoker 03/12/2014 03/09/2022 Overview (03/12/2014): Working on quitting Cough 2012 01/04/2013 Routine general medical exam ination at a health care facility 12/28/2011 10/03/2023 Overview (01/04/2013): colon cancer- scheduled 12/2012 s/p hysterectomy declines pneumovax and influenza vaccine 01/04/2013 Syncope and collapse 10/05/2006 012 VERTIGO 10/05/2006 12/28/2011 Cervicalgia 10/05/2006 12/28/2011 WEAKNESS 10/05/2006 12/28/2011 Tobacco use disorder 03/23/2005 022 BACK PAIN s/p APF 03/22/05 03/23/2005 0 10/05/2006 Immunizations Name Administration Dates Next Due Td (Age >=7 Years) 10/27/1999,04/10/1989 Tdap 01/07/2009 Family History Medical History Relation Name Comments Psychiatric illness Brother drug add iction Cancer Daughter melanoma, fathe r also has this diagnosis Unknown Father Cancer Mother lung cancer Hypertension Sister 1 Hyperlipidemia Sister 2 Relation Name Status Comments Brother Daughter Father Mother Sister 1 Sister 2 Social History Tobacco Use Types Packs/Day Years Used Date Smoking Tobacco: Former Cigarettes 1 50 0 09/10/1971 - 09/09/2021 Smokeless Tobacco: Never Tobacco Cessation:Counseling Given: Not Answered Alcohol Use Standard Drinks/Week Comments Yes 0 (1 standard drink = 0.6 oz pur e alcohol) 1 drink a year PHQ-2 Answer Date Recorded PHQ-2 TOTAL SCORE 0 06/26/2021 Financial Resource Strain Answer Date R ecorded Difficulty of Paying Living Expenses Not on file 04/11/2021 Difficulty of Paying Living Expenses Not on file 04/11/2021 Comments No Sex and Gender Information Value Date Recorded Sex Assigned at Not on file Legal Sex Female 6:48 AM MONUMENT MASON Gender Identity Not on file Sexual Orientation Not on file Obstetrics History Last Filed Vital Signs Vital Sign Reading Time Taken Comments Blood Pressure 152/92 04/22/2022 4:10 PM MONUMENT MASON Pulse 105 04/22/2022 4:10 PM MONUMENT MASON Temperature 36.5 C (97.7 F) 04/22/2022 4:10 PM MONUMENT MASON Respiratory Rate 14 04/22/2022 4:10 PM MONUMENT MASON Oxygen Saturation 97% 04/22/2022 4:10 PM MONUMENT MASON Inhaled Oxygen Concentration - - Weight 81.6 kg (180 lb) 04/22/2022 4:10 PM MONUMENT MASON p er pt Height 170.2 cm (5' 7) 06/26/2021 11:46 AM CDT Body Mass Index 28.19 06/26/2021 11:46 AM CDT Plan of Treatment Health Maintenance Due Date Last Done Comments Pneumococcal series for age 6-49 (1 of 2 - PCV) 1966 HIV for age 15-65 1975 Pneumococcal series for age 50+ (1 of 2 - PCV) 1979 Mammogram for age 45-[address] (for lung CA) ag e 50-80 2010 Zoster (shingles) series for age 50+ (1 of 2) 2010 Tetanus booster 01/07/2019 01/07/2009, 10/09, 04/10/1989 RSV vaccine for adults or (1 - Risk 60-74 years 1-dose series) 2020 Colonoscopy through age 75 12/18/202112/18 (Completed outside of [facility]) BMI (ht and wt on same day) for age 18+ 06/26/2022 06/26/2021, 06/17/2020, 03/27/2020 Depression screening for age 12+ 06/29/2022 06/29/2021, 06/26/2021, 06/20/2020, Additional history exists COVID-19 vaccine series ( season) 2023 Influenza for age 50-64 12/11/2023 Lipids for age 45-75 06/26/2026 06/26/2021, 07/03/2020, 03/12/2014, Additional history exists Tdap Completed 01/07/2009 Hepatitis C screening for ag e 18-79 Completed 03/12/2014 Medical Devices Implanted Type Area Gear Milling Machine Set Up Operator Device Identifier Shelf Expiration Date Model / Serial / Lot Bone Canclls Crushed 30cc [[id number]] [[id number]][ Implanted:Qty: 1 on 03/22/2005 at [facility] Explanted:at [facility] (Quantity not on file) Bilateral: Spine BIOGRAFT [id number]# / [id number] Description:expiration 05/28, [facility] tissue services, ID# [id number] Bone Precision 14x26 - [id number] Implanted:Qty: 1 on 03/22/2005 at [facility] Explanted:at [facility] (Quantity not on file) N/A: Spine [employer] 12/23/2009 [id number] / [id number] / [id number] Description:Exp:12/23/2009 Bone Canclls Crushed 30cc [[id number]] [[id number]][ Implanted:Qty: 1 on 03/22/2005 at [facility] Explanted:at [facility] (Quantity not on file) N/A: Spine BIOGRAFT [id number]# / [id number] Description:Cancellous, praneeth hed, fine. 30ccExp:05/08/2007 Bone Precision [id number] - [id number] Implanted:Qty: 1 on 03/22/2005 at [facility] Explanted:at [facility] (Quantity not on file) Bilateral: Spine [employer] 12/19/2009 [id number]# / [id number] / [id number] Description:exp: 12/23/2009. Tissue ID# [id number] Bone Precision 14x26 Fz - [id number] Implanted:Qty: 1 on 03/22/2005 at [facility] Explanted:at [facility] (Quantity not on file) Bilateral: Spine [employer] 12/11/2009 [id number] / [id number] / [id number] Description:exp 12/11/2009; Tissue [id number] Bone Canclls Crushed 30cc [[id number]] [[id number]][ Implanted:Qty: 1 on 03/22/2005 at [facility] Explanted:at [facility] (Quantity not on file) N/A: Lumbar Vertebrae BIOGRAFT [id number]# / [id number] Description:valentin mitchell ed,fine ,30 c.c. exp 06/22/07, FOR POSTERIOR L2-3, L3-4, L4-5. Screw Legacy 6.5x40 Titnm M/A [id number] - [id number] Implanted:Qty: 7 on 03/22/2005 at [facility] Bilateral: Lumbar Vertebrae SOFAMOR DANEK [id number] / / Description:posteriorL2-3,L3 -4,L4-5 Jose 5.5mm Abbey 500mm Long Cp 4 [id number] - [id number] Implanted:Qty: 1 on 03/22/2005 at [facility] N/A: Lumbar Vertebrae [employer]ANEK [id number]# / / Description:POSTERIOR L2-3,L 3-4, L4-5. Screw Set Non Break-Off Hex Titnm - [id number] Implanted:Qty: 7 on 03/22/2005 at [facility] N/A: Lumbar Vertebrae LEYLA CASTILLO [id number] / / Description:POSTERIOR L2-3,L 3-4,L4-5. Procedures Procedure Name Priority Date/Time Associated Diagnosis Comments LIPID PANEL W REFLEX MEASURED LDL Routine 06/26/2021 12:29 PM CDT Screening for lipid disorders ANTI HCV Routine 03/12/2014 9:43 AM MONUMENT MASON Need for hepatitis C screening test from Last 3 Months or Most Recently Relevant to Health Maintenance Results * (ABNORMAL) LIPID PANEL W REFLEX MEASURED LDL (06/26/2021 12:29 PM CDT) CHOLESTEROL,TOTAL 237(H) 100 - 199 mg/dL 06/26/2021 7:58 PM CDT [facility] TRIGLYCERIDES 238(H) <150 mg/dL 06/26/2021 7:58 PM CDT [facility] HDL CHOLESTEROL 50 >40 mg/dL 7:58 PM CDT [facility] NON-HDL CHOLESTEROL 187(H) <145 mg/dl 06/26/2021 7:58 PM CDT [facility] CHOL/HDL RATIO 4.74(H) <4.50 06/26/2021 7:58 PM CDT [facility] LDL CHOLESTEROL 139(H) <=130 mg/dL 06/26/2021 7:58 PM CDT [facility] VLDL CHOLESTEROL 48(H) <=30 mg/dL 06/26/2021 7:58 PM CDT [facility] PROVIDER ORDERED STATUS RANDOM 06/26/2021 7:58 PM CDT [facility] Blood BLOOD SPECIMEN / Unknown Venipuncture / Unknown 06/26/2021 12:29 PM CDT 06/26/2021 12:29 PM CDT us Yeimi Wright MD CHEMISTRY Final Resu lt [facility] [address] [place] [address], [place] * ANTI HCV [89236.2] (03/12/2014 9:43 AM MONUMENT MASON) HEPATITIS C ANTIBODY Non-Reacti ve Non-Reacti ve 03/12/2014 3:20 PM MONUMENT MASON [facility] Blood specimen (specimen) BLOOD SPECIMEN / Unknown Butterfly / Unknown 03/12/2014 9:43 AM MONUMENT MASON 03/12/2014 9:43 AM MONUMENT MASON Narrative [facility] - 03/12/2014 3:20 PM MONUMENT MASON Antibodies to HCV not detected; does not exclude the possibility of exposure to HCV. us Harmony Voss MD SEND OUTS Final Resu lt Performing Organization Address [facility]/ZIP Co de Phone Number [facility] [address] [place] [address], from Last 3 Months or Most Recently Relevant to Health Maintenance Insurance MEDICARE PART B HB ONLY [facility] [employer] PAYER MORTGAGE ASSISTANT Advance Directives * Full Code (Latest Code Status on File) Date Activated Date Inactivated Comments 07/26/2008 5:53 PM 07/31/2008 6:16 PM * Full Code Date Activated Date Inactivated Comments 07/25/2008 8:51 PM 07/26/2008 5:53 PM * Full Code Date Activated Date Inactivated Comments 10/05/2006 7:07 PM 10/11/2006 5:01 PM * Full Code Date Activated Date Inactivated Comments 03/22/2005 11:04 PM 03/30/2005 7:12 PM Care Teams Civil Cad Designer Relationship Specialty Start Date End Date Andres Palmer MD [address] [place] [address] PCP - General Family Practice 10/03/23 [place] [address] [place] [address] Family Practice 03/09/22
--- OUTSIDE RECORDS SUMMARY | 2024-04-12 15:01 | XMS_ITS | Referral Summary ---
Author Organization [facility] Address [address] [place] [address] Care Team Providers Care Gis Developer Name Role Phone [facility], [facility] Primary Care Provide r Priscilla Babcock MD Unavailable [phone] Priscilla Babcock MD Unavailable [phone] Allergies Active Allergy Reactions Criticality Noted Date Comments Amitriptyline Unknown 10/05/2006 Erythromycin Nausea and Vomiting 03/19/2005 Ibuprofen 03/25/2023 Other Reaction(s): Caused an ulcer Furosemide 04/18/2018 Wheezing and increased Methylprednisolone Hives 03/19/2005 Other reaction(s): Vestibular Toxicity COLD SWEATS Penicillins Hives 03/19/2005 Sulfa Antibiotics Nausea and Vomiting 5 Tramadol Other (See Comments) 03/12/2014 hives Medications acetaminophen (TYLENOL) 500 MG tablet Take 500 mg by mouth every 6 hours as needed for mild pain Active acetaminophen-cod eine (TYLENOL #3) 300-30 MG tablet Take 0.5-1 tablets by mouth 2 times daily as needed for severe pain Active topiramate (TOPAMAX) 100 MG tablet Recommend start at 50 mg (1/2 tab) q am and pm (with slow up titration to home dose if needed). 9 Active artificial saliva (BIOTENE DRY MOUTHWASH) LIQD liquid Swish and spit 10 mLs in mouth 4 times daily 1200 mL 9 Active artificial saliva (BIOTENE DRY MOUTHWASH) LIQD liquid Swish and spit 10 mLs in mouth 4 times daily as needed for dry mouth 9 Active albuterol (PROAIR HFA/PROVENTIL HFA/VENTOLIN HFA) 108 (90 Base) MCG/ACT inhalerIndication s:COPD with acute exacerbation (H) Inhale 2 puffs into the lungs every 6 hours 1 Inhaler 3 9 Active Active Problems Problem Noted Date Diagnosed Date Debility 04/27/2018 Sepsis 04/13/2018 Social History Tobacco Use Types Packs/Day Years Used Date Smoking Tobacco: Every Day Cigarettes Alcohol Use Standard Drinks/Week Comments Yes 0 (1 standard drink = 0.6 oz pur e alcohol) AUDIT-C Answer Date Recorded Frequency of Alcohol Consumption Monthly or less 04/27/2018 Average Number of Drinks 1 or 2 019 Frequency of Binge Drinking Never 04/11 Adolescent Education Answer Date Record ed Getting School Help Needed Not on file 01/16 Comments No Sex and Gender Information Value Date Recorded Sex Assigned at Not on file Legal Sex Female 3:12 AM FINANCIAL MANAGEMENT CONSULTANT Gender Identity Not on file Sexual Orientation Not on file Last Filed Vital Signs Vital Sign Reading Time Taken Comments Blood Pressure 119/77 08/08/2023 4:36 PM CDT Pulse 87 08/08/2023 4:36 PM CDT Temperature 36.6 C (97.8 F) 09/17/2021 8:16 PM CDT Respiratory Rate 20 09/17/2021 8:16 PM CDT Oxygen Saturation 97% 09/17/2021 11:50 PM CDT Inhaled Oxygen Concentration - - Weight 85.7 kg (189 lb) 08/08/2023 4:36 PM CDT Height 172.7 cm (5' 8) 08/08/2023 4:36 PM CDT Body Mass Index 28.74 08/08/2023 4:36 PM CDT Plan of Treatment Not on file Procedures Procedure Name Priority Date/Time Associated Diagnosis Comments GLUCOSE (EXTERNAL RESULT) Routine 05/27/2023 3:[address]CIAL MANAGEMENT CONSULTANT CT CHEST PULMONARY EMBOLISM W CONTRAST STAT 04/25/2018 12:33 PM FINANCIAL MANAGEMENT CONSULTANT from Last 3 Months or Most Recently Relevant to Health Maintenance Results * Glucose (External Result) (05/27/2023 3:23 PM FINANCIAL MANAGEMENT CONSULTANT) Glucose (External) 93 60 - 115 mg/dL [facility] Blood 05/27/2023 3:23 PM FINANCIAL MANAGEMENT CONSULTANT Narrative [facility] - 05/27/2023 3:23 PM FINANCIAL MANAGEMENT CONSULTANT [facility] LAB RESULT us Provider Outside LAB - HIM EXTERNAL RESULT Final Result [facility] [address] [phone] * CT Chest Pulmonary Embolism w Contrast (04/25/2018 12:33 PM FINANCIAL MANAGEMENT CONSULTANT) Anatomical Region Laterality Modality Chest, SUBRAD CT BODY, UMP CT CHEST Computed Tomography Impressions 04/25/2018 3:49 PM FINANCIAL MANAGEMENT CONSULTANT IMPRESSION: 1. No evidence for acute pulmonary embolus. 2. Overall improvement since 04/19/2018 with improving medial right upper lobe infiltrate, improving small right pleural effusion and resolution of previous left pleural effusion. There is continued opacity at the right lung base consistent with atelectasis. Consistent with improving infectious or inflammatory process. 3. Redemonstrated emphysematous changes. Redemonstrated mild bronchial wall thickening and a few areas of bronchial opacification consistent with mucous plugging, and overall findings favor infectious or inflammatory process improved since 04/19/2018. TYLER BAZAN MD Narrative 04/25/2018 3:[address]NAGEMENT CONSULTANT [address] CHEST PULMONARY EMBOLISM WITH CONTRAST 04/25/2018 12:33 PM HISTORY: PE suspected, intermediate probability. Negative D-dimer. Pleuritic right-sided chest pain. TECHNIQUE: Axial images from thoracic inlet to diaphragm. 66 mL Isovue-370. Radiation dose for this scan was reduced using automated exposure control, adjustment of the mA and/or kV according to patient size, or iterative reconstruction technique. COMPARISON: 04/19/2018 CT chest FINDINGS: Improvement in the small bilateral pleural effusions with residual minimal right effusion with associated atelectasis and no significant remaining left pleural effusion. No evidence for acute pulmonary embolus or thoracic aortic dissection. Small hiatal hernia. Low-attenuation 1.4 cm right adrenal nodule consistent with adenoma. Stable mild left adrenal thickening. Calcified right infrahilar nodule or node consistent with granulomatous disease, image 91 series 6. Extensive emphysematous changes. 0.4 cm left lower lobe nodule, series 10 image 190. Improvement in the anterior medial groundglass opacity in the right mid lung with some residual opacity remaining. No new or increasing infiltrates. Procedure Note Tyler Bazan MD - 04/25/2018 CT CHEST PULMONARY EMBOLISM WITH CONTRAST 04/25/2018 12:33 PM HISTORY: PE suspected, intermediate probability. Negative D-dimer. Pleuritic right-sided chest pain. TECHNIQUE: Axial images from thoracic inlet to diaphragm. 66 mL Isovue-370. Radiation dose for this scan was reduced using automated exposure control, adjustment of the mA and/or kV according to patient size, or iterative reconstruction technique. COMPARISON: 04/19/2018 CT chest FINDINGS: Improvement in the small bilateral pleural effusions with residual minimal right effusion with associated atelectasis and no significant remaining left pleural effusion. No evidence for acute pulmonary embolus or thoracic aortic dissection. Small hiatal hernia. Low-attenuation 1.4 cm right adrenal nodule consistent with adenoma. Stable mild left adrenal thickening. Calcified right infrahilar nodule or node consistent with granulomatous disease, image 91 series 6. Extensive emphysematous changes. 0.4 cm left lower lobe nodule, series 10 image 190. Improvement in the anterior medial groundglass opacity in the right mid lung with some residual opacity remaining. No new or increasing infiltrates. IMPRESSION: 1. No evidence for acute pulmonary embolus. 2. Overall improvement since 04/19/2018 with improving medial right upper lobe infiltrate, improving small right pleural effusion and resolution of previous left pleural effusion. There is continued opacity at the right lung base consistent with atelectasis. Consistent with improving infectious or inflammatory process. 3. Redemonstrated emphysematous changes. Redemonstrated mild bronchial wall thickening and a few areas of bronchial opacification consistent with mucous plugging, and overall findings favor infectious or inflammatory process improved since 04/19/2018. TYLER BAZAN MD Krishna Vela MD IMG CT ORDERABLES Final Resu lt from Last 3 Months or Most Recently Relevant to Health Maintenance Insurance [employer] MEDICARE ADVANTAGE [employer] MEDICARE ADVANTAGE Advance Directives For more information, please contact: [phone] * Full Code (Latest Code Status on File) Date Activated Date Inactivated Comments 04/28/2018 6:26 PM 09/17/2021 7:56 PM Question Answer Comments Code status determined by: Discussion with patie nt/legal decision maker * Full Code Date Activated Date Inactivated Comments 04/27/2018 3:47 PM 04/28/2018 6:26 PM Question Answer Comments Code status determined by: Discussion with patie nt/legal decision maker * Full Code Date Activated Date Inactivated Comments 04/27/2018 8:44 AM 04/27/2018 2:49 PM Question Answer Comments Code status determined by: Discussion with patie nt/legal decision maker * Full Code Date Activated Date Inactivated Comments 04/13/2018 12:37 PM 04/27/2018 8:44 AM Question Answer Comments Code status determined by: Discussion with patie nt/legal decision maker Care Teams Gis Developer Relationship Specialty Start Date End Date [facility], [facility] [address] [place], [place] [id number] PCP - General 04/13/18 Priscilla Babcock MD [address] [facility] [address] [place], [place] [id number] Otolaryngology 04/21/23 Priscilla Babcock MD [address] [facility] [address] [place], [place] [address] Assigned Surgical Provider 09/01/23
--- OUTSIDE RECORDS SUMMARY | 2024-04-12 15:01 | XMS_ITS | Clinical Summary ---
Author Organization [place] Address [address] 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 Gender Identity Not on file Sexual Orientation [...] 08/08/2023 4:36 PM CDT Plan of Treatment Health Maintenance Due Date Last Done Comments ANNUAL REVIEW OF HM ORDERS 1960 CT COLONOGRAPHY 1960 FIT 1960 FLEX SIG 1960 MAMMO SCREENING 1960 sDNA (Cologuard) 1960 COLONOSCOPY 1970 COLORECTAL CANCER SCREENING 1970 HIV SCREENING 1975 HEPATITIS C SCREENING 1978 Pneumococcal Vaccine: 50+ Years (1 of 2 - PCV) 1979 PAP 1981 LIPID 2000 ZOSTER IMMUNIZATION (1 of 2) 2010 DTAP/TDAP/TD IMMUNIZATION (2 - Td or Tdap) 01/07/2019 01/07/2009, 10/27/1999, 04/10/1989 LUNG CANCER SCREENING 04/25/2019 04/25/2018 , 04/19/2018, 04/13/2018 MEDICARE ANNUAL WELLNESS VISIT 06/26/2022 06/26/2021, 06/17/2020 PHQ-2 (once per calendar year) 2023 ADVANCE CARE PLANNING 04/14/2023 04/14/2018 COVID-19 Vaccine ( season) 2023 INFLUENZA VACCINE (#1) 2023 GLUCOSE 05/27/2026 05/27/2023, 04/11, 04/23/2018, Additional history exists RSV VACCINE (1 - 1-dose 75+ series) 2035 HPV IMMUNIZATION Aged Out No longer e ligible based on patient's age to complete this topic MENINGITIS IMMUNIZATION Aged Out No l onger eligible based on patient's age to complete this topic RSV MONOCLONAL ANTIBODY Aged Out No l onger eligible based on patient's age to complete this topic Procedures Procedure Name Priority Date/Time Associated Diagnosis Comments GLUCOSE (EXTERNAL RESULT) Routine 05/27/2023 3:23 PM HEALTH AND SAFETY TRAINER CT CHEST PULMONARY EMBOLISM W CONTRAST STAT 04/25/2018 12:33 PM HEALTH AND SAFETY TRAINER from Last 3 Months or Most Recently Relevant to Health Maintenance Results * Glucose (External Result) (05/27/2023 3:23 PM HEALTH AND SAFETY TRAINER) Glucose (External) 93 60 - 115 mg/dL [facility] Blood 05/27/2023 3:23 PM HEALTH AND SAFETY TRAINER Narrative [facility] - 05/27/2023 3:23 PM HEALTH AND SAFETY TRAINER [facility] LAB RESULT us Provider Outside LAB - HIM EXTERNAL RESULT Final Result [facility] [address] [place] [address], [facility] [place] [phone] * CT Chest Pulmonary Embolism w Contrast (04/25/2018 12:33 PM HEALTH AND SAFETY TRAINER) Anatomical Region Laterality Modality Chest, SUBRAD CT BODY, UMP CT CHEST Computed Tomography Impressions 04/25/2018 3:49 PM HEALTH AND SAFETY TRAINER IMPRESSION: 1. No evidence for acute pulmonary [...] TYLER BAZAN MD Narrative 04/25/2018 3:49 PM HEALTH AND SAFETY TRAINER CT CHEST PULMONARY EMBOLISM WITH CONTRAST 04/25/2018 [...] Advance Directives For more information, please contact: [phone] * Full Code (Latest Code Status on [...] with patie nt/legal decision maker Care Teams Fender Mechanic Relationship Specialty Start Date End Date Clinic, [facility] [address] [place] [address] PCP - General 04/13/18 Priscilla Babcokc MD [address] [facility] [address] [place], [place] [id number] Otolaryngology 04/21/23 Priscilla Babcock MD [address] [facility] [address] [place], [place] [address] Assigned Surgical Provider 09/01/23
--- NOTE | 2024-05-31 16:17 | PT.OPDN ---
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 reports she's been experiencing whole body trembling that is just making her weak. This past week I have been having more difficulty breathing and I have to put pressure on my diaphragm to try and get a breath. Additionally I have been feeling like I swallowed a beach ball when I eat, even if it's just one bite. More headaches recently Date of Last Physician Visit 10/06/23 Precautions Weight Bearing Status Full Weight Bearing Home Exercise Home Exercise Comments MEDBRIDGE: [id number] diaphragmatic breathing with pressure (ball, pool noodle) at sternum to encourage posterior rib expansion, open book [id number] (added 01/25/24) shoulder extension isomet, shoulder row isomet, ER AROM Objective Other/Pertinent Objective Inspection - AROM - Shoulders flexion R 78, L 90, abduction R 70 with pain at shoulder, L 100, ER 70 % behind head B, IR to glut med B; cervical flexion 70%, extension 40%, RLF 15%, LLF 30 %, B rotation 25% with more pain to R STRENGTH - cervical flexion, extension, RLF 3+/5, L 3/5 with pain, L UE grossly 3-/5, R UE grossly 4-/5 [ End ] Patient Instructed in Risks/Benefits Yes Therapeutic Exercise Therapeutic Exercise Minutes (minutes) 26 Therapeutic Exercise: To Restore scap squeezes 10x Functional Status bicep curls 10x shoulder ER/IR 10x seated heel raises 10x seated toe raises 10x LAQ 10x with measurements for PN Manual Therapy Techniques Manual Therapy Minutes (minutes) 30 Manual Therapy Techniques moderate STM to B thoracic paraspinals and B UT, cervical paraspinals, scalenes and posterior scalp with emphasis on very large lump/spasm in L lower thoracic region that banded out along her ribs inferior to her L scapula to decrease guarding and facilitate tissue mobility Treatment Minutes Timed Code Treatment Minutes 56 Total Treatment Time 56 Billing Units Manual Therapy Units 2 Therapeutic Exercise Units 2 Assessment/Impression Assessment/Impression Pt. had an unusual lump/band in the lower L thoracic region that expanded out in band toward her lateral trunk inferior to her L scapula. It did minimize with today's session so suspect it was a spasm, however it also had the feel of a potential lipoma. This is not something that is normally present for her and will need to assess next session, but it may correlate to her more recent difficulties taking a deep breath. We did a progress note for re-certification today but strength measurements were difficult due to trembling throughout her body today. As there is no cure for her condition I expect her to need maintenance care to maintain some range, strength and function. She has more recently tolerated very light exercise. Primary Functional Limitations reaching, lifting, carrying, ADLs, walking Plan of Care Physical Therapy Goals SHORT TERM GOALS: (6 weeks) 1. Pt. able to move head without becoming dizzy. (Not met) 2. Pt. able to report decreased frequency of tension headaches to less than 4/week . (Not met) 3. Pt. able to report decreased episode of headaches through her eyes to less than 1/week. (Not met) 4. Pt. able to report decreased symptoms into L arm (MET) NEW GOALS 04-05-24 1. Pt. able to complete HEP 2x /week 2. Pt. to report improved ability to breath with less sternum pain. 3. Pt. to consistently have less tension in the suboccipital region to contribute to potential decrease in HAs. Daily Plan of Care Continue per POC Daily Plan of Care Comments Ongoing POC to consist of therex, NM re-ed, manual therapy, may consider US/e- stim Recertification Information Initial Certification Date 10/17/23 Recertification Start Date 05/14/24 Recertification Due Date 08/28/24 Reasons to Continue Skilled Therapy chronic nature of CRPS stage IV with impaired ability to use UE in ADLs, breathing and swallowing issues, impaired balance, impaired gait, impaired NM control during therex/UE movements Rehabilitation Potential Poor Continued Plan of Care and Interventions Therex, NM re-ed, manual therapy Provider Signature Shows Agreement With POC & Medical Necessity Physician Comment/Change Comment or Changes Physician NPI Number #
--- NOTE | 2024-10-04 12:34 | PT.OPDN ---
PT [place] Outpatient Daily Note PT [facility] Outpatient Daily Note Start: 10/11/23 16:10 Freq: Status: Active Protocol: Document 09/26/24 15:06 LSL (Rec: 09/26/24 16:08 LSL [id number]) E-signed By Criss Vazquez, PT PT OP Daily Progress Note Visit Information Note Type Daily Note Visit Number 38 Insurance Authorized eval & treat Visits Physician Authorized maintenance per MD Visits Insurance Information Recert Due Date 11/28/24 Insurance Name Medicare B,Workman's Comp Insurance G[employer]ATIONS [employer]OCIATE Information/Comments Medical Diagnosis CRPS 1, Stage IV Treating Diagnosis pain, weakness, headaches, impaired ROM Referring MD Estela Subjective Preferred Name Leyla Hebert Pt. reports her L levator is very tight and her head hates her. Digestion worked well for 2-3 days and now not working again. Pain Comments Pain in L C-T junction Date of Last 10/06/23 Physician Visit Precautions Weight Bearing Full Weight Bearing Status Home Exercise Home Exercise MEDBRIDGE: [id number] Comments diaphragmatic breathing with pressure (ball, pool noodle) at sternum to encourage posterior rib expansion , open book [id number] (added 01/25/24) shoulder extension isomet, shoulder row isomet, ER AROM Objective Patient Instructed Yes in Risks/Benefits Therapeutic Exercise Therapeutic Exercise 18 Minutes (minutes) Therapeutic Exercise seated heel raises 15x : To Restore seated toe raises 15x Functional Status seated june 12x ea seated TB hip abd 12x scap squeezes 5x bicep curls 10x shoulder ER/IR 12x LAQ 10x short lever abd 5x shoulder shrug 5x manual cervical rotation and lateral flexion 1x ea 15 sec hold Manual Therapy Techniques Manual Therapy 38 Minutes (minutes) Manual Therapy STM to B cervical paraspinals, UT, LS, SCM, platysmus Techniques release to decrease pain in the L C-T area that was impairing her cervical mobility and contributing to heads. MFR to frontalis and temporalis to decrease HAs. Mild to moderate visceral strokes from stomach to gall bladder direction, back to the left side and down toward pelvis to assist digestion; diaphragm release Neuromuscular Re-Ed Neuromuscular 3 Reeducation Minutes (minutes) Neuromuscular breathing practicing lateral rib expansion Reeducation Comments Treatment Minutes Timed Code Treatment 59 Minutes Total Treatment Time 59 Billing Units Manual Therapy Units 3 Therapeutic Exercise 1 Units Assessment/Impression Assessment/ Pt. continues with left levator scapulae spasm Impression impairing her L shoulder mobility due to pain. She continues to temporarily benefit from visceral mobilization from an eliminating perspective. Her tolerance to manual pressure today was less than it's been recently. She continues to benefit form maintenance cares to maintain as much mobility and function in her ADLs as possible. If returns with same L LS painful area next week will use US. Primary Functional reaching, lifting, carrying, ADLs, walking Limitations Plan of Care Physical Therapy SHORT TERM GOALS: (6 weeks) Goals 1. Pt. able to move head without becoming dizzy. (Not met) 2. Pt. able to report decreased frequency of tension headaches to less than 4/week. (Not met) 3. Pt. able to report decreased episode of headaches through her eyes to less than 1/week. (Not met) 4. Pt. able to report decreased symptoms into L arm ( MET) NEW GOALS 04-05-24 1. Pt. able to complete HEP 2x/week 2. Pt. to report improved ability to breath with less sternum pain. 3. Pt. to consistently have less tension in the suboccipital region to contribute to potential decrease in HAs. Daily Plan of Care Continue per POC Daily Plan of Care Ongoing POC to consist of therex, NM re-ed, manual Comments therapy, may consider US/e-stim Recertification Information Initial 10/17/23 Certification Date Recertification 08/28/24 Start Date Recertification Due 11/28/24 Date Reasons to Continue chronic nature of CRPS stage IV with impaired ability Skilled Therapy to use UE in ADLs, breathing and swallowing issues, impaired balance, impaired gait, impaired NM control during therex/UE movements. Her physician has written a letter of necessity for regular PT. Rehabilitation Poor Potential Continued Plan of Therex, NM re-ed, manual therapy Care and Interventions Provider Signature POC & Medical Necessity Shows Agreement With Physician Comment/ Comment or Changes Change Physician NPI Number #
== END 2025-01-24 23:59 | disposition home or self-care (01) ==
PROVIDERS: PCP Family Medicine; Visit Provider Family Medicine
DX: G90.59 Complex regional pain syndrome I of other specified site (principal); R53.1 Weakness; R51.9 Headache, unspecified; Z51.89 Encounter for other specified aftercare
CPT/HCPCS: 97035; 97110; 97140; 97163

== ENCOUNTER 2024-10-03 11:23 | Outpatient (CLI) | payer OTHER, SELFPAY | END 2024-10-03 11:24 | disposition home or self-care (01) | LOC: NFLDREF 10-07 01:31 | PROVIDERS: PCP Family Medicine; Referring Provider Family Medicine; Visit Provider Family Medicine | DX: E27.9 Disorder of adrenal gland, unspecified (principal); I10 Essential (primary) hypertension; G90.50 Complex regional pain syndrome I, unspecified | CPT/HCPCS: 82533; 84443 ==

== ENCOUNTER 2024-12-24 12:04 | Outpatient (CLI) | payer OTHER, SELFPAY | END 2024-12-24 12:05 | disposition home or self-care (01) | LOC: LKVREF 12:05 | PROVIDERS: PCP Family Medicine; Visit Provider Family Medicine | DX: R79.89 Other specified abnormal findings of blood chemistry (principal); I10 Essential (primary) hypertension | CPT/HCPCS: 80076 ==

== ENCOUNTER 2025-01-01 08:17 | Outpatient (CLI) | payer OTHER, SELFPAY ==
[2025-01-01] MEDS: SODIUM CHLORIDE 0.9 % (FLUSH) 10 ML SYRINGE IVF (10:14)
[2025-01-01] MEDS: REGADENOSON 0.4 MG/5 ML SYRINGE IVP (10:14)
[2025-01-01 10:26] VITALS: BP 136/83; PULSE 103; RESP 18
--- NOTE | 2025-01-01 11:48 | W.PM.STED ---
Stress Test Note Date Date of test: 01/01/25 Providers Primary care provider: Andres Palmer Stress test physician: Miguel Arceo Stress Test Note Stress test ordered: Lexiscan Indication for test: hypertension, short of breath Stress test medicine: Lexiscan Results discussion: This very nice patient presents for the above test, after discussion the risks benefits and side effects of the test, patient would like to continue. Cardiac stress test medical history form is reviewed entirely. Pretest EKG shows normal sinus rhythm, with a ventricular rate of 78 blood pressure [address] on 75. No acute ST wave changes are noted. Standard Lexiscan nonwalking protocol is done for duration of 5 minutes, achieved a metabolic equivalent of 1 met. Maximum heart rate was 116, no ST wave changes are noted throughout the tracing, subjectively she had a little bit of nausea. No anginal other equivalent symptoms. Recovered normally in recovery. Impression: Negative objective electrographic portion of Lexiscan, subjectively negative Follow up suggested: Await nuclear images which will be read by nuclear Medicine, clinical correlation with these will be needed, there were no complications and patient left this testing facility in good condition.
== END 2025-01-01 12:00 | disposition home or self-care (01) ==
LOC: STRESS 08:18
PROVIDERS: PCP Family Medicine; Visit Provider Internal Medicine
DX: I10 Essential (primary) hypertension (principal); R06.02 Shortness of breath; G90.50 Complex regional pain syndrome I, unspecified
CPT/HCPCS: 78452; 93016; 93017; A9500; J2785

== ENCOUNTER 2025-01-02 15:00 | Outpatient (CLI) | payer OTHER, SELFPAY | END 2025-01-02 15:01 | disposition home or self-care (01) | LOC: RAD 15:04 | PROVIDERS: PCP Family Medicine; Visit Provider Internal Medicine | DX: I10 Essential (primary) hypertension (principal); I35.1 Nonrheumatic aortic (valve) insufficiency; G90.50 Complex regional pain syndrome I, unspecified | CPT/HCPCS: 93306 ==